=== PATIENT | female | born 2000 | race Native Hawaiian/Other Pacific Islander ===

== ENCOUNTER 2022-07-22 17:10 | Emergency (ER) | payer BC ==
[2022-07-22] MEDS ORDERED: traMADol 50 MG Tab PO ONE (17:12)
[2022-07-22] MEDS ORDERED: Acetaminophen 500 MG Tab PO ONE (17:12)
== END 2022-07-22 18:43 | disposition home or self-care (01) ==
LOC: FB.ED 17:10
DX: S09.90XA Unspecified injury of head, initial encounter (principal); W01.10XA Fall on same level from slipping, tripping and stumbling with subsequent striking against unspecified object, initial encounter
CPT/HCPCS: 70450; 99283; A9270